=== PATIENT | female | born 2000 | race Caucasian/White ===

== ENCOUNTER 2025-01-17 20:57 | Inpatient (IN) | payer BC ==
[2025-01-17 23:09] VITALS: BMI 32.8
[2025-01-17] MEDS ORDERED: Oxytocin 30 units/NS 500 ML 500 ML IV SCH (23:14)
[2025-01-17] MEDS ORDERED: Lidocaine 1% (PF) 30 ML VIAL SC PRN (23:14)
[2025-01-17] MEDS ORDERED: Ondansetron PF 4 MG/2 ML Vial IVP PRN (23:14)
[2025-01-17] MEDS ORDERED: HYDROcodone/Acetaminophen 5/325 mg Tablet PO PRN (23:14)
[2025-01-17] MEDS ORDERED: Carboprost 250 MCG/ML AMP IM PRN (23:14)
[2025-01-17] MEDS ORDERED: Methylergonovine 0.2 MG/ML VIAL IM PRN (23:14)
[2025-01-17] MEDS ORDERED: Diphenoxylate HCl/Atropine Tablet PO PRN (23:14)
[2025-01-17] MEDS ORDERED: hydrALAZINE 20 MG/ML VIAL SLOW IVP PRN (23:14)
[2025-01-17] MEDS ORDERED: Ibuprofen 800 MG TAB PO PRN (23:14)
[2025-01-17] MEDS ORDERED: Acetaminophen 500 MG TAB PO PRN (23:14)
[2025-01-17 23:20] LABS: Hematocrit 35.7 % (34.9-44.5); Hemoglobin 12.0 g/dL (12.0-15.5); Mean Corpuscular Hemoglobin 31.2 pg (27.0-33.0); Mean Corpuscular Volume 92.7 fL (81.6-98.3); Platelet Count 246 10x3/uL (150-450); Red Blood Cell (RBC) Count 3.85 10x6/uL (3.90-5.03); White Blood Cell (WBC) Count 9.45 10x3/uL (3.5-10.5)
[2025-01-17 23:50] LABS: Syphilis Antibody Index 0.08 S/CO (<1.00 Non-Reactive)
[2025-01-17 23:51] LABS: Hep B Surf Ag - L&D Non-Reactive S/CO (NonReactive)
[2025-01-18] MEDS: Oxytocin 30 units/NS 500 ML 500 ML IV SCH (04:06)
[2025-01-18] MEDS: fentaNYL/Ropivacaine Epidural 100 ML ONE (08:10)
[2025-01-18] MEDS ORDERED: Ondansetron PF 4 MG/2 ML Vial IVP PRN ×2 (08:14→14:47)
[2025-01-18] MEDS ORDERED: Acetaminophen 325 MG TAB PO PRN (08:14)
[2025-01-18] MEDS ORDERED: diphenhydrAMINE 50 MG/ML VIAL IVP PRN (08:14)
[2025-01-18] MEDS ORDERED: Communication Order-Pharmacy FS SCH (08:15)
[2025-01-18] MEDS ORDERED: fentaNYL 2 mcg/Ropivacaine 0.2% Epidural 100 ML CADD EPIDURAL SCH (08:15)
[2025-01-18] MEDS ORDERED: Milk Of Magnesia 30 ML UDCUP PO PRN (14:47)
[2025-01-18] MEDS ORDERED: diphenhydrAMINE 25 MG CAP PO PRN (14:47)
[2025-01-18] MEDS ORDERED: hydrALAZINE 20 MG/ML VIAL SLOW IVP PRN (14:47)
[2025-01-18] MEDS ORDERED: Lanolin Ointment 7 GM TUBE TOP PRN (14:47)
[2025-01-18] MEDS ORDERED: Preparation H Ointment 28 GM TUBE PR PRN (14:47)
[2025-01-18] MEDS ORDERED: HYDROcodone/Acetaminophen 5/325 mg Tablet PO PRN ×2 (14:47)
[2025-01-18] MEDS ORDERED: Bisacodyl 10 MG SUPP PR PRN (14:47)
[2025-01-18] MEDS: Benzocaine-Menthol 82.5 ML CAN TOP PRN (16:29)
[2025-01-18] MEDS: Ibuprofen 800 MG TAB PO SCH (16:29)
[2025-01-18] MEDS: Ferrous Sulfate 325 MG TAB PO SCH (18:40)
[2025-01-19 11:31] VITALS: BP 118/74; TEMP 98.3
== END 2025-01-19 17:00 | disposition home or self-care (01) | DRG 807 ==
LOC: CSHLD 20:57 → CSHPP 01-18 15:10
PROVIDERS: ADMIT Student in an Organized Health Care Education/Training Program; ATTEND Student in an Organized Health Care Education/Training Program
PROC: 10E0XZZ Delivery of Products of Conception, External Approach (ICD-10-PCS; principal; 2025-01-18)
PROC: 0HQ9XZZ Repair Perineum Skin, External Approach (ICD-10-PCS; 2025-01-18)
PROC: 4A1HXCZ Monitoring of Products of Conception, Cardiac Rate, External Approach (ICD-10-PCS; 2025-01-18)
PROC: 10907ZC Drainage of Amniotic Fluid, Therapeutic from Products of Conception, Via Natural or Artificial Opening (ICD-10-PCS; 2025-01-18)
DX: O70.0 First degree perineal laceration during delivery (principal); Z37.0 Single live birth; Z3A.39 39 weeks gestation of pregnancy; O69.81X0 Labor and delivery complicated by cord around neck, without compression, not applicable or unspecified
CPT/HCPCS: 36415; 51702; 85027; 86780; 86850; 86900; 86901; 87340; J2590; J7120